=== PATIENT | female | born 1990 | race Caucasian/White ===

== ENCOUNTER → 2016-03-11 | Outpatient (REF) | payer OTHER | LOC: M LAB REF 09:57 | PROVIDERS: ATTEND Physician Assistant | DX: J02.9 Acute pharyngitis, unspecified (principal) ==

== ENCOUNTER → 2016-05-18 | Outpatient (REF) | payer OTHER | LOC: M LAB REF 14:08 | PROVIDERS: ATTEND Physician Assistant Medical | DX: R68.89 Other general symptoms and signs (principal) ==

== ENCOUNTER → 2019-02-20 | Outpatient (CLI) | payer OTHER, MEDICAID ==
[2019-02-20 18:45] LABS: HEMATOCRIT 37.7 % (36.0-47.0); HEMOGLOBIN 12.2 g/dl (12.0-15.5); MEAN CORPUSCULAR HEMOGLOBIN 31.3 pg (27.0-33.0); MEAN CORPUSCULAR HGB CONC 32.4 g/dl (32.0-36.5); MEAN CORPUSCULAR VOLUME 96.7 fl (80.0-96.0); PLATELET COUNT, AUTOMATED 193 10^3/uL (150-450); WHITE BLOOD COUNT 9.8 10^3/uL (4.0-10.0)
== END ==
LOC: M WUC 14:26
PROVIDERS: ATTEND Nurse Practitioner Women's Health
DX: Z34.82 Encounter for supervision of other normal pregnancy, second trimester (principal); Z3A.00 Weeks of gestation of pregnancy not specified

== ENCOUNTER → 2019-03-30 | Outpatient (REF) | payer OTHER, MEDICAID | LOC: M LAB REF 16:28 | PROVIDERS: ATTEND Obstetrics & Gynecology | DX: Z36.85 Encounter for antenatal screening for Streptococcus B (principal) ==

== ENCOUNTER 2019-04-20 07:59 | Outpatient (CLI) | payer OTHER, MEDICAID ==
[~2019-04-20] VITALS: Ht 157.5 cm; Wt 81.7 kg
[2019-04-20 08:18] VITALS: BP 119/67
[2019-04-20] MEDS ORDERED: PRENTAB9 PO (08:23)
[2019-04-20] MEDS ORDERED: EXCETAB33 PO (08:23)
[2019-04-20] MEDS ORDERED: FIORICET TAB PO ONE (09:00)
[2019-04-20 09:39] VITALS: BP 126/75
[2019-04-20 11:22] VITALS: BP 106/61
[2019-04-20 12:44] VITALS: BP 123/80
== END 2019-04-20 13:20 | disposition home or self-care (01) ==
LOC: M LDO 07:59
PROVIDERS: ATTEND Obstetrics & Gynecology
DX: O99.353 Diseases of the nervous system complicating pregnancy, third trimester (principal); G43.909 Migraine, unspecified, not intractable, without status migrainosus; Z3A.37 37 weeks gestation of pregnancy; Z79.82 Long term (current) use of aspirin; Z88.2 Allergy status to sulfonamides

== ENCOUNTER 2019-05-03 00:56 | Inpatient (IN) | payer OTHER, MEDICAID ==
[~2019-05-03] VITALS: Ht 157.5 cm; Wt 82.1 kg
[2019-05-03] VITALS (62 sets, daily range): BP systolic 107–162; BP diastolic 59–100
[~2019-05-03 00:56] MED LIST: EXCETAB33 PO; PRENTAB9 PO
[2019-05-03] MEDS ORDERED: PENICILLIN G POTASSIUM IV 5 MU in D5W MINI-BAG PLUS 100 ML IV ONE (02:00)
[2019-05-03 03:13] LABS: HEMOGLOBIN 13.1 g/dl (12.0-15.5); MEAN CORPUSCULAR HEMOGLOBIN 31.6 pg (27.0-33.0); MEAN CORPUSCULAR HGB CONC 34.5 g/dl (32.0-36.5); MEAN CORPUSCULAR VOLUME 91.6 fl (80.0-96.0); PLATELET COUNT, AUTOMATED 199 10^3/uL (150-450); RED BLOOD COUNT 4.15 10^6/uL (4.00-5.40); WHITE BLOOD COUNT 11.2 10^3/uL (4.0-10.0)
[2019-05-03 03:33] LABS: ALT/SGPT 20 U/L (12-78); BILIRUBIN,TOTAL 0.5 MG/DL (0.2-1.0); CREATININE FOR GFR 0.71 MG/DL (0.55-1.30); GLOMERULAR FILTRATION RATE > 60.0 (>60); LDH LACTATE DEHYDROGENASE 174 U/L (84-246); URIC ACID 4.8 MG/DL (2.6-6.0)
[2019-05-03] MEDS: PENICILLIN G POTASSIUM IV 2.5 MU in IV 1 EA IV SCH ×5 (06:23→22:41)
[2019-05-03] MEDS ORDERED: LACTATED RINGER'S 1000 ML IV STA (08:47)
[2019-05-03] MEDS ORDERED: OXYTOCIN 30 UNITS IN 0.9% NaCl 500ML IV BAG (J2590) As Ordered ONE (17:51)
[2019-05-03] MEDS ORDERED: LR 1,000 ML IV SCH (17:52)
[2019-05-03] MEDS ORDERED: OXYTOCIN DRIP 30 UNITS in IV 1 EA IV SCH ×5 (18:00→23:38)
[2019-05-03] MEDS ORDERED: FENTANYL 2MCG/ML ROPIVACAINE 0.2% IN 0.9% NACL 100ML IVBAG As Ordered ONE (19:56)
[2019-05-03] MEDS ORDERED: FENTANYL/ROPIVACAINE/NACL BAG 100 ML EPIDURAL SCH (21:00)
[2019-05-03] MEDS ORDERED: EPIDURAL/PCA KEYS XX PRN (21:00)
[2019-05-03] MEDS ORDERED: NALOXONE INJ 0.4 MG/1 ML VIAL (J2310) IV PRN (21:00)
[2019-05-03] MEDS ORDERED: ePHEDrine SULFATE 25 MG/5 ML(5MG/ML) SYRINGE IV PRN (21:00)
[2019-05-03] MEDS ORDERED: EPIDURAL COMMENT XX SCH (21:00)
[2019-05-03] MEDS ORDERED: ONDANSETRON 4MG/2ML VIAL (J2405) IV PRN (21:00)
[2019-05-03] MEDS ORDERED: LACTATED RINGER'S 1000 ML IV PRN (21:00)
[2019-05-03] MEDS ORDERED: diphenhydrAMINE INJ 50MG/ML VIAL (J1200) IV PRN (21:00)
[2019-05-03] MEDS ORDERED: REFRIGERATOR IV KEYS XX PRN (21:00)
[2019-05-03] MEDS ORDERED: METHYLERGONOVINE MALEATE 0.2 MG TAB PO PRN (23:45)
[2019-05-03] MEDS ORDERED: IBUPROFEN 600 MG TAB PO PRN (23:45)
[2019-05-03] MEDS ORDERED: DIBUCAINE 1% OINTMENT 30GM TOP PRN (23:45)
[2019-05-03] MEDS ORDERED: ACETAMINOPHEN TAB 650MG DOSE (2X325MG) PO PRN (23:45)
[2019-05-03] MEDS ORDERED: ANUSOL HC CREAM 30GM TOP PRN (23:45)
[2019-05-03] MEDS ORDERED: MEASLES,MUMPS,RUBELLA VACCINE INJ (MMR-II) (90707) SC SCH (23:45)
[2019-05-03] MEDS ORDERED: DOCUSATE SODIUM 100 MG CAP PO PRN (23:45)
[2019-05-03] MEDS ORDERED: RHOGAM 300 MCG (1500 IU) INJ (J2790) IM SCH (23:45)
[2019-05-04] VITALS (8 sets, daily range): BP systolic 128–155; BP diastolic 74–87
[2019-05-04 01:45] LABS: CORD GAS ABE A -3.4; CORD GAS O2 SAT A 34.4 %; CORD GAS PCO2 A 58.5 mmHg; CORD GAS PH A 7.249 UNITS; CORD GAS PO2 A 18.8 mmHg; CORD GAS SBC A 20.1 MEQ/L; CORD GAS TCO2 A 26.8 MEQ/L
[2019-05-04 01:46] LABS: CORD GAS ABE V -5.4; CORD GAS HCO3 V 21.1 MEQ/L; CORD GAS O2 SAT V 59.6 %; CORD GAS PCO2 V 44.7 mmHg; CORD GAS PH V 7.292 UNITS; CORD GAS PO2 V 26.8 mmHg; CORD GAS SBC V 19.2 MEQ/L; CORD GAS TCO2 V 22.5 MEQ/L
[2019-05-04] MEDS: ACETAMINOPHEN 500 MG TAB PO PRN ×2 (06:43→20:02)
--- NOTE | 2019-05-04 08:24 | HPE ---
DATE OF ADMISSION: 05/03/2019 Dung is a 29-year-old female, 1, para 0-0-0 with an EDC of 05/08/2019, EGA 39-4/7 weeks gestation who presented to labor and delivery with complaint of spontaneous rupture of membrane around 12 midnight. She is having occasional contractions. Her record reviewed which was essentially unremarkable. She initiated care in her first trimester at 7 weeks. lab blood type is O+, rubella immune, hepatitis negative, HIV negative, GC and chlamydia negative, 1-hour sugar testing was within normal limits. Her GBS is positive. PAST MEDICAL HISTORY: Denies. PAST SURGICAL HISTORY: Tonsillectomy as a child. SOCIAL HISTORY: She denies any alcohol, drug or cigarette smoking. REVIEW OF SYSTEMS: Unremarkable. MEDICATIONS: vitamin. ALLERGIES: BACTRIM. FAMILY HISTORY: Unremarkable. PHYSICAL EXAMINATION: HEENT: Grossly within normal limits. Abdomen: Soft, nontender, nondistended. Extremities: No clubbing, cyanosis or edema. Vaginal exam: Gross rupture of membrane, 2 cm dilated, 80% effaced, fetus at -2 station in vertex position. Tracing reviewed category 1 tracing. ASSESSMENT: 1. Intrauterine at 39-4/7 weeks gestation with spontaneous rupture of membrane in labor. 2. Group B streptococcus (GBS) positive. PLAN: Admit to labor and delivery. Antibiotics started for GBS prophylaxis. Pain management discussed. The patient opted for an epidural. We will continue to monitor. Anticipate delivery.
[2019-05-04] MEDS: PRENATAL VITAMINS CHEWABLE TABLET PO SCH (09:17)
--- NOTE | 2019-05-04 12:19 | DN ---
DATE: 05/03/2019 Dung is a 29-year-old female 1, para 0 who was admitted at 39-4/7 weeks gestation with spontaneous rupture of membranes. She underwent Pitocin augmentation and then progressed to fully dilated after an epidural. She then pushed and delivered a live male infant in right occiput anterior position. scores of 7 and 9. weight 7 pounds 2 ounces. Placenta delivered spontaneously intact. Three-vessel cord. Perineum, vagina and cervix inspected. First-degree midline perineal laceration noted, which was repaired using 2-0 chromic. Estimated blood loss 300 mL. Both mother and baby in stable condition.
[2019-05-04] MEDS: IBUPROFEN 800 MG TAB PO PRN ×2 (15:15)
[2019-05-05] MEDS: IBUPROFEN 800 MG TAB PO PRN (00:59)
[2019-05-05 05:55] VITALS: BP 124/76
[2019-05-05] MEDS: PRENATAL VITAMINS CHEWABLE TABLET PO SCH (09:00)
== END 2019-05-05 13:00 | disposition home or self-care (01) | DRG 560 ==
LOC: M LDO 00:56 → M LDI 02:29 → M OBS 05-04 01:29
PROVIDERS: ADMIT Obstetrics & Gynecology; ATTEND Obstetrics & Gynecology
PROC: 10E0XZZ Delivery of Products of Conception, External Approach (ICD-10-PCS; principal; 2019-05-03)
PROC: 0HQ9XZZ Repair Perineum Skin, External Approach (ICD-10-PCS; 2019-05-03)
DX: O99.824 Streptococcus B carrier state complicating childbirth (principal); Z37.0 Single live birth; Z3A.39 39 weeks gestation of pregnancy; O70.0 First degree perineal laceration during delivery

== ENCOUNTER → 2019-12-09 | Outpatient (REF) | payer OTHER, MEDICAID ==
[2019-12-09 14:31] LABS: APPEARANCE, URINE CLOUDY (CLEAR); BACTERIA, URINE AUTO 2+ (NEGATIVE); BILIRUBIN, URINE AUTO NEGATIVE (NEGATIVE); BLOOD, URINE BLOOD 3+ (NEGATIVE); COLOR, URINE YELLOW (YELLOW); GLUCOSE, URINE (UA) AUTO NEGATIVE (NEGATIVE); KETONE, URINE AUTO NEGATIVE (NEGATIVE); LEUKOCYTE ESTERASE, URINE AUTO 3+ (NEGATIVE); MUCUS, URINE SMALL (NEGATIVE); NITRITE, URINE AUTO NEGATIVE (NEGATIVE); PROTEIN, URINE AUTO 1+ mg/dL (NEGATIVE); RBC, URINE AUTO 11 /HPF (0-3); SPECIFIC GRAVITY URINE AUTO 1.004 (1.002-1.035); SQUAMOUS EPITHELIAL CELL UR AU 1 /HPF (0-6); UROBILINOGEN, URINE AUTO 0.2 mg/dL (0.0-2.0); WBC, URINE AUTO TNTC /HPF (0-3)
== END ==
LOC: M LAB REF 12:39
PROVIDERS: ATTEND Physician Assistant
DX: N39.0 Urinary tract infection, site not specified (principal)

== ENCOUNTER 2021-02-01 08:41 | Emergency (ER) | payer MEDICAID, OTHER ==
[~2021-02-01] VITALS: Ht 157.5 cm; Wt 73.6 kg
[2021-02-01] MEDS ORDERED: NAPR-849 PO (09:05)
[2021-02-01] MEDS ORDERED: KETOROLAC TROMETHAMINE 10 MG TAB PO ONE (12:00)
[2021-02-01] MEDS ORDERED: CYCLOBENZAPRINE 5MG TABLET PO ONE ×2 (12:00)
[2021-02-01] MEDS ORDERED: LIDOCAINE 5% (LIDODERM) PATCH TD ONE (12:00)
[2021-02-01] MEDS ORDERED: CYCL5TAB PO (12:44)
[2021-02-01] MEDS ORDERED: KETO10TAB PO (12:45)
[2021-02-01 12:50] VITALS: BP 120/79
[2021-02-01] MEDS ORDERED: **NOTE PATIENT COMMENT** MISC XX SCH (21:00)
== END 2021-02-01 12:56 | disposition home or self-care (01) ==
LOC: M ED 08:41
DX: M54.42 Lumbago with sciatica, left side (principal); Z87.440 Personal history of urinary (tract) infections; Z79.82 Long term (current) use of aspirin; Z88.2 Allergy status to sulfonamides

== ENCOUNTER → 2021-03-22 | Outpatient (REF) | payer OTHER ==
[~2021-03-22] MED LIST changes: +CYCL5TAB PO; +KETO10TAB PO; +NAPR-849 PO
[2021-03-22 13:43] LABS: RSV AMPLIFICATION NEGATIVE (NEGATIVE)
== END ==
LOC: M WUC 12:11
PROVIDERS: ATTEND Physician Assistant
DX: J02.9 Acute pharyngitis, unspecified (principal); R68.83 Chills (without fever)

== ENCOUNTER → 2021-12-03 | Outpatient (REF) | payer OTHER ==
[~2021-12-03] MED LIST changes: +EXCETAB32 PO; -EXCETAB33 PO
[2021-12-03 19:17] LABS: HCG, SERUM QUALITATIVE POSITIVE (NEGATIVE)
[2021-12-03 19:34] LABS: HCG, SERUM QUANTITATIVE 36 MIU/ML
== END ==
LOC: M PLALAB 17:12
PROVIDERS: ATTEND Nurse Practitioner Family
DX: N91.2 Amenorrhea, unspecified (principal)

== ENCOUNTER → 2021-12-13 | Outpatient (REF) | payer OTHER, MEDICAID ==
[2021-12-13 17:27] LABS: HEMATOCRIT 41.1 % (36.0-47.0); HEMOGLOBIN 13.7 g/dl (12.0-15.5); MEAN CORPUSCULAR HEMOGLOBIN 31.4 pg (27.0-33.0); MEAN CORPUSCULAR HGB CONC 33.3 g/dl (32.0-36.5); MEAN CORPUSCULAR VOLUME 94.3 fl (80.0-96.0); PLATELET COUNT, AUTOMATED 239 10^3/uL (150-450); RED BLOOD COUNT 4.36 10^6/uL (4.00-5.40); WHITE BLOOD COUNT 6.6 10^3/uL (4.0-10.0)
[2021-12-13 18:06] LABS: HCG, SERUM QUANTITATIVE 599 MIU/ML
[2021-12-13 18:41] LABS: HEPATITIS B SURFACE ANTIGEN NEGATIVE (NEGATIVE)
[2021-12-13 19:08] LABS: HEPATITIS C VIRUS ABY INDEX < 0.0 INDEX (<0.8); HIV 1&2 SCREEN CENTAUR NEGATIVE (NEGATIVE)
== END ==
LOC: M LAB REF 16:24
PROVIDERS: ATTEND Obstetrics & Gynecology
DX: O36.80X0 Pregnancy with inconclusive fetal viability, not applicable or unspecified (principal); Z32.01 Encounter for pregnancy test, result positive

== ENCOUNTER → 2021-12-17 | Outpatient (REF) | payer OTHER, MEDICAID | LOC: M LAB REF 16:11 | PROVIDERS: ATTEND Obstetrics & Gynecology | DX: O36.80X0 Pregnancy with inconclusive fetal viability, not applicable or unspecified (principal); Z32.01 Encounter for pregnancy test, result positive ==

== ENCOUNTER → 2021-12-19 | Outpatient (REF) | payer OTHER, MEDICAID | LOC: M LAB REF 12:04 | PROVIDERS: ATTEND Advanced Practice Midwife | DX: O36.80X0 Pregnancy with inconclusive fetal viability, not applicable or unspecified (principal); Z3A.00 Weeks of gestation of pregnancy not specified ==

== ENCOUNTER → 2021-12-21 | Outpatient (REF) | payer OTHER, MEDICAID | LOC: M LAB REF 12:19 | PROVIDERS: ATTEND Advanced Practice Midwife | DX: O02.1 Missed abortion (principal) ==

== ENCOUNTER → 2021-12-25 | Outpatient (REF) | payer OTHER, MEDICAID | LOC: M LAB REF 16:23 | PROVIDERS: ATTEND Obstetrics & Gynecology | DX: O02.1 Missed abortion (principal) ==

== ENCOUNTER → 2022-01-01 | Outpatient (REF) | payer OTHER, MEDICAID | LOC: M LAB REF 16:27 | PROVIDERS: ATTEND Obstetrics & Gynecology | DX: O03.9 Complete or unspecified spontaneous abortion without complication (principal) ==

== ENCOUNTER 2022-01-13 06:14 | Emergency (ER) | payer MEDICAID, OTHER ==
[~2022-01-13] VITALS: Ht 157.5 cm; Wt 72.7 kg
[2022-01-13 07:48] LABS: BASO % 0.4 % (0.0-1.0); EOS # 0.1 10^3/uL (0.0-0.5); EOS % 0.9 % (0.0-3.0); HEMATOCRIT 42.5 % (36.0-47.0); HEMOGLOBIN 14.6 g/dl (12.0-15.5); LYMPH # 1.2 10^3/uL (1.5-5.0); LYMPH % 15.8 % (24.0-44.0); MEAN CORPUSCULAR HEMOGLOBIN 31.8 pg (27.0-33.0); MEAN CORPUSCULAR HGB CONC 34.4 g/dl (32.0-36.5); MEAN CORPUSCULAR VOLUME 92.6 fl (80.0-96.0); MONO # 0.3 10^3/uL (0.0-0.8); MONO % 3.2 % (2.0-8.0); NEUTROPHILS # 6.2 10^3/uL (1.5-8.5); NEUTROPHILS % 79.3 % (36.0-66.0); PLATELET COUNT, AUTOMATED 211 10^3/uL (150-450); RED BLOOD COUNT 4.59 10^6/uL (4.00-5.40); WHITE BLOOD COUNT 7.8 10^3/uL (4.0-10.0)
[2022-01-13] MEDS ORDERED: methylPREDNISolone 125MG 2ML VIAL IV ONE (07:50)
[2022-01-13] MEDS ORDERED: LIDOCAINE 5% (LIDODERM) PATCH TD ONE (07:50)
[2022-01-13] MEDS ORDERED: CYCLOBENZAPRINE 10MG TABLET PO ONE (07:50)
[2022-01-13] MEDS ORDERED: ACETAMINOPHEN 500 MG TAB PO ONE (07:50)
[2022-01-13] MEDS ORDERED: KETOROLAC 30 MG/ML 1ML VIAL IV ONE (07:50)
[2022-01-13 08:20] LABS: BLOOD UREA NITROGEN 16 MG/DL (7-18); CARBON DIOXIDE LEVEL 26 MEQ/L (21-32); CHLORIDE LEVEL 108 MEQ/L (98-107); CREATININE FOR GFR 0.81 MG/DL (0.55-1.30); GLOMERULAR FILTRATION RATE > 60.0 (>60); GLUCOSE, FASTING 92 MG/DL (70-100); POTASSIUM SERUM 4.3 MEQ/L (3.5-5.1); SODIUM LEVEL 139 MEQ/L (136-145)
[2022-01-13] MEDS ORDERED: MORPHINE 4 MG/ML 1ML VIAL/SYRINGE IV ONE (10:30)
[2022-01-13] MEDS ORDERED: ONDANSETRON 4MG 2ML VIAL IV ONE (10:30)
[2022-01-13 11:27] LABS: APPEARANCE, URINE MANUAL HAZY (CLEAR); COLOR, URINE MANUAL YELLOW (YELLOW); SPECIFIC GRAVITY,URINE MANUAL 1.015 (1.002-1.035)
[2022-01-13 11:28] LABS: BILIRUBIN, URINE MANUAL NEGATIVE (NEGATIVE); BLOOD URINE MANUAL NEGATIVE (NEGATIVE); GLUCOSE, URINE (UA) MANUAL NEGATIVE (NEGATIVE); KETONE, URINE MANUAL 2+ mg/dL (NEGATIVE); LEUKOCYTE ESTERASE, URINE MAN POSITIVE (NEGATIVE); NITRITE, URINE MANUAL NEGATIVE (NEGATIVE); PROTEIN, URINE MANUAL TRACE mg/dL (NEGATIVE); UROBILINOGEN, URINE MANUAL NORMAL (NORMAL)
[2022-01-13 11:34] LABS: WBC, URINE 20-30 /hpf (0-3)
[2022-01-13 11:35] LABS: BACTERIA, URINE MOD AMOUNT; HYALINE CAST, URINE NONE SEEN /lpf (0-1); MUCUS, URINE MOD AMOUNT (NEGATIVE); SQUAMOUS EPITHELIAL CELL URINE LARGE AMOUNT /hpf (SMALL AMT)
[2022-01-13] MEDS: HYDROMORPHONE HCL 0.5 MG/ 0.5 ML SYRINGE (J1170 PER 1) IV PRN ×2 (11:40→13:42)
[2022-01-13] MEDS ORDERED: IBUP200C29 PO (12:39)
[2022-01-13] MEDS ORDERED: HOME MED LIST COMPLETE! XX SCH (12:40)
[2022-01-13 13:44] LABS: RSV AMPLIFICATION NEGATIVE (NEGATIVE)
[2022-01-13 13:46] VITALS: BP 115/68
[2022-01-13] MEDS ORDERED: LIDO5DIS41 TOP (14:20)
[2022-01-13] MEDS ORDERED: MEDR4PAK PO (14:20)
[2022-01-13] MEDS ORDERED: CYCL5TAB PO (14:20)
[2022-01-13] MEDS ORDERED: IBUP80TA PO (14:23)
== END 2022-01-13 14:36 | disposition home or self-care (01) ==
LOC: M ED 06:14
DX: S39.012A Strain of muscle, fascia and tendon of lower back, initial encounter (principal); M51.16 Intervertebral disc disorders with radiculopathy, lumbar region; M51.27 Other intervertebral disc displacement, lumbosacral region; Z88.2 Allergy status to sulfonamides; Z79.899 Other long term (current) drug therapy
CPT/HCPCS: 72148; 80048; 81000; 84702; 85025; 87631; 93041; 96374; 96375; 96376; 99284; J1170; J1885; J2270; J2405; J2930

== ENCOUNTER → 2022-01-29 | Outpatient (CLI) | payer OTHER ==
[~2022-01-29] MED LIST changes: +IBUP200C29 PO; +IBUP80TA PO; +LIDO5DIS41 TOP; +MEDR4PAK PO
[2022-01-29 14:48] LABS: ALBUMIN 4.3 G/DL (3.2-5.2); ALT/SGPT 11 U/L (7.0-40); BILIRUBIN,TOTAL 1.1 MG/DL (0.3-1.2); BLOOD UREA NITROGEN 12 MG/DL (9-23); CALCIUM LEVEL 9.4 MG/DL (8.5-10.1); CARBON DIOXIDE LEVEL 27 MMOL/L (20-31); CHLORIDE LEVEL 106 MMOL/L (98-107); CREATININE FOR GFR 0.78 MG/DL (0.55-1.30); GLOMERULAR FILTRATION RATE > 60.0 (>60); GLUCOSE, FASTING 89 MG/DL (60-100); POTASSIUM SERUM 4.6 MMOL/L (3.5-5.1); SODIUM LEVEL 140 MMOL/L (136-145); TOTAL PROTEIN 7.3 G/DL (5.7-8.2)
== END ==
LOC: M PLALAB 08:37
PROVIDERS: ATTEND Nurse Practitioner Family
DX: M54.50 Low back pain, unspecified (principal)

== ENCOUNTER → 2022-03-14 | Outpatient (CLI) | payer OTHER ==
[~2022-03-14] MED LIST changes: +ACET32TAB PO; +MULTTAB20 PO
== END ==
LOC: M RAD 07:38
PROVIDERS: ATTEND Nurse Practitioner Family
DX: R16.0 Hepatomegaly, not elsewhere classified (principal)

== ENCOUNTER → 2022-06-20 | Outpatient (REF) | payer OTHER | LOC: M LAB REF 17:34 | PROVIDERS: ATTEND Nurse Practitioner Family | DX: Z12.4 Encounter for screening for malignant neoplasm of cervix (principal) ==

== ENCOUNTER → 2022-06-27 | Outpatient (REF) | payer OTHER, MEDICAID ==
[2022-06-27 17:20] LABS: HEMATOCRIT 39.7 % (36.0-47.0); HEMOGLOBIN 13.5 g/dl (12.0-15.5); MEAN CORPUSCULAR HEMOGLOBIN 31.8 pg (27.0-33.0); MEAN CORPUSCULAR VOLUME 93.6 fl (80.0-96.0); PLATELET COUNT, AUTOMATED 259 10^3/uL (150-450); RED BLOOD COUNT 4.24 10^6/uL (4.00-5.40); WHITE BLOOD COUNT 7.1 10^3/uL (4.0-10.0)
[2022-06-27 17:52] LABS: HEPATITIS B SURFACE ANTIGEN NEGATIVE (NEGATIVE)
[2022-06-27 18:05] LABS: HIV 1&2 SCREEN CENTAUR NEGATIVE (NEGATIVE)
[2022-06-27 18:13] LABS: HEPATITIS C VIRUS ABY INDEX < 0.0 INDEX (<0.8)
[2022-06-27 18:20] LABS: HCG, SERUM QUANTITATIVE 4485.1 MIU/ML (<4.2)
== END ==
LOC: M LAB REF 16:32
PROVIDERS: ATTEND Obstetrics & Gynecology
DX: Z32.01 Encounter for pregnancy test, result positive (principal); O36.80X0 Pregnancy with inconclusive fetal viability, not applicable or unspecified; Z3A.00 Weeks of gestation of pregnancy not specified

== ENCOUNTER → 2022-07-09 | Outpatient (CLI) | payer OTHER ==
[2022-07-09 12:00] LABS: HCG, SERUM QUALITATIVE POSITIVE (NEGATIVE)
[2022-07-09 12:29] LABS: HCG, SERUM QUANTITATIVE 58611.6 MIU/ML (<4.2)
== END ==
LOC: M PLALAB 08:10
PROVIDERS: ATTEND Nurse Practitioner Family
DX: N91.2 Amenorrhea, unspecified (principal)

== ENCOUNTER → 2022-07-24 | Outpatient (CLI) | payer OTHER | LOC: M RAD 15:51 | PROVIDERS: ATTEND Obstetrics & Gynecology | DX: Z32.01 Encounter for pregnancy test, result positive (principal) ==

== ENCOUNTER → 2022-07-26 | Outpatient (REF) | payer OTHER, MEDICAID | LOC: M LAB REF 12:02 | PROVIDERS: ATTEND Obstetrics & Gynecology | DX: O20.9 Hemorrhage in early pregnancy, unspecified (principal); Z3A.00 Weeks of gestation of pregnancy not specified ==

== ENCOUNTER → 2022-10-09 | Outpatient (CLI) | payer OTHER | LOC: M WHC 12:02 | PROVIDERS: ATTEND Obstetrics & Gynecology | DX: Z34.82 Encounter for supervision of other normal pregnancy, second trimester (principal) ==

== ENCOUNTER → 2022-11-14 | Outpatient (CLI) | payer OTHER | LOC: M WHC 09:33 | PROVIDERS: ATTEND Obstetrics & Gynecology | DX: Z34.82 Encounter for supervision of other normal pregnancy, second trimester (principal) ==

== ENCOUNTER → 2022-11-27 | Outpatient (CLI) | payer OTHER ==
[2022-11-27 12:03] LABS: HEMATOCRIT 37.3 % (36.0-47.0); HEMOGLOBIN 12.6 g/dl (12.0-15.5); MEAN CORPUSCULAR HEMOGLOBIN 31.3 pg (27.0-33.0); MEAN CORPUSCULAR HGB CONC 33.8 g/dl (32.0-36.5); MEAN CORPUSCULAR VOLUME 92.6 fl (80.0-96.0); PLATELET COUNT, AUTOMATED 222 10^3/uL (150-450); RED BLOOD COUNT 4.03 10^6/uL (4.00-5.40); WHITE BLOOD COUNT 10.4 10^3/uL (4.0-10.0)
== END ==
LOC: M WUC 09:09
PROVIDERS: ATTEND Obstetrics & Gynecology
DX: Z36.9 Encounter for antenatal screening, unspecified (principal)

== ENCOUNTER → 2022-12-12 | Outpatient (CLI) | payer OTHER | LOC: M LAB 07:09 | PROVIDERS: ATTEND Obstetrics & Gynecology | DX: O99.810 Abnormal glucose complicating pregnancy (principal); Z3A.00 Weeks of gestation of pregnancy not specified ==

== ENCOUNTER → 2023-01-03 | Outpatient (CLI) | payer OTHER | LOC: M RAD 08:56 | PROVIDERS: ATTEND Obstetrics & Gynecology | DX: O14.93 Unspecified pre-eclampsia, third trimester (principal) ==

== ENCOUNTER → 2023-01-03 | Outpatient (CLI) | payer OTHER ==
[2023-01-03 16:35] LABS: URINE TOTAL PROTEIN 15.5 MG/DL (0-14)
[2023-01-03 17:07] LABS: URIC ACID 4.5 MG/DL (3.1-7.8)
[2023-01-03 17:09] LABS: LDH LACTATE DEHYDROGENASE 124 U/L (120-246)
[2023-01-03 17:10] LABS: ALT/SGPT 14 U/L (7.0-40); AST/SGOT 10 U/L (<34); BASO % 0.3 % (0.0-1.0); BILIRUBIN,TOTAL 0.5 MG/DL (0.3-1.2); CREATININE FOR GFR 0.55 MG/DL (0.55-1.30); EOS % 0.4 % (0.0-3.0); GLOMERULAR FILTRATION RATE > 60.0 (>60); HEMATOCRIT 36.2 % (36.0-47.0); HEMOGLOBIN 12.3 g/dl (12.0-15.5); LYMPH # 2.2 10^3/uL (1.5-5.0); LYMPH % 22.9 % (24.0-44.0); MEAN CORPUSCULAR HEMOGLOBIN 31.3 pg (27.0-33.0); MEAN CORPUSCULAR VOLUME 92.1 fl (80.0-96.0); MONO # 0.6 10^3/uL (0.0-0.8); MONO % 6.4 % (2.0-8.0); NEUTROPHILS # 6.5 10^3/uL (1.5-8.5); NEUTROPHILS % 68.5 % (36.0-66.0); PLATELET COUNT, AUTOMATED 202 10^3/uL (150-450); RED BLOOD COUNT 3.93 10^6/uL (4.00-5.40); WHITE BLOOD COUNT 9.5 10^3/uL (4.0-10.0)
[2023-01-03 18:30] LABS: TOTAL PROTEIN 24 HOUR URINE 317.7 MG/24HR (50-80)
== END ==
LOC: M LAB 15:38
PROVIDERS: ATTEND Obstetrics & Gynecology
DX: O14.93 Unspecified pre-eclampsia, third trimester (principal)

== ENCOUNTER → 2023-01-14 | Outpatient (REF) | payer OTHER, MEDICAID ==
[~2023-01-14] MED LIST changes: +ACET-897 PO
[2023-01-14 17:37] LABS: CREATININE,RANDOM URINE 29.8 MG/DL
[2023-01-14 17:41] LABS: TOTAL PROTEIN,RANDOM URINE < 6.0 MG/DL (0.0-14.0)
== END ==
LOC: M LAB REF 16:16
PROVIDERS: ATTEND Advanced Practice Midwife
DX: O14.93 Unspecified pre-eclampsia, third trimester (principal)

== ENCOUNTER 2023-01-15 15:28 | Inpatient (IN) | payer OTHER, MEDICAID ==
[2023-01-15] VITALS (13 sets, daily range): BP systolic 134–195; BP diastolic 91–125
[~2023-01-15] VITALS: Ht 157.5 cm; Wt 87.3 kg
[~2023-01-15 15:28] MED LIST changes: -ACET-897 PO
[2023-01-15 16:33] LABS: HEMATOCRIT 37.5 % (36.0-47.0); HEMOGLOBIN 13.1 g/dl (12.0-15.5); MEAN CORPUSCULAR HEMOGLOBIN 32.1 pg (27.0-33.0); MEAN CORPUSCULAR HGB CONC 34.9 g/dl (32.0-36.5); MEAN CORPUSCULAR VOLUME 91.9 fl (80.0-96.0); PLATELET COUNT, AUTOMATED 203 10^3/uL (150-450); RED BLOOD COUNT 4.08 10^6/uL (4.00-5.40); WHITE BLOOD COUNT 10.2 10^3/uL (4.0-10.0)
[2023-01-15] MEDS ORDERED: ACET-897 PO (16:36)
[2023-01-15] MEDS ORDERED: HOME MED LIST COMPLETE! XX SCH (16:40)
[2023-01-15 16:52] LABS: CREATININE,RANDOM URINE 62.3 MG/DL
[2023-01-15 17:01] LABS: URIC ACID 4.2 MG/DL (3.1-7.8)
[2023-01-15 17:03] LABS: LDH LACTATE DEHYDROGENASE 131 U/L (120-246)
[2023-01-15 17:04] LABS: ALT/SGPT 9 U/L (7.0-40); AST/SGOT 9 U/L (<34); BILIRUBIN,TOTAL 0.5 MG/DL (0.3-1.2); CREATININE FOR GFR 0.52 MG/DL (0.55-1.30); GLOMERULAR FILTRATION RATE > 60.0 (>60)
[2023-01-15] MEDS ORDERED: LACTATED RINGER'S 1000 ML IV STA (17:39)
[2023-01-15] MEDS ORDERED: TRANEXAMIC ACID INJection 1,000 MG in NS 100 ML IV PRN (17:40)
[2023-01-15] MEDS ORDERED: CARBOPROST TROMETHAMINE 250 MCG/ML AMP IM PRN (17:40)
[2023-01-15] MEDS ORDERED: OXYTOCIN DRIP 30 UNITS in IV 1 EA IV PRN (17:40)
[2023-01-15] MEDS ORDERED: LIDOCAINE 1% MDV 20ML VIAL INFIL PRN (17:40)
[2023-01-15] MEDS ORDERED: OXYTOCIN INJ 10UNITS/ML 1ML VIAL IM PRN (17:40)
[2023-01-15] MEDS ORDERED: PENICILLIN G POTASSIUM 5 MU IV 5 MU in D5W MINI-BAG PLUS 100 ML IV STA (18:01)
[2023-01-15] MEDS: miSOPROStol 50MCG 1/2 TABLET PO SCH (18:45)
[2023-01-15] MEDS ORDERED: PEN G POT 3,000,000 UNIT/50 ML 3,000,000 UNIT in IV 1 EA IV SCH (22:05)
[2023-01-16] VITALS (27 sets, daily range): BP systolic 127–185; BP diastolic 69–102; O2SAT 96–98
[2023-01-16] MEDS: miSOPROStol 50MCG 1/2 TABLET PO SCH (00:37)
[2023-01-16] MEDS ORDERED: FENTANYL 2MCG/ML ROPIVACAINE 0.2% IN 0.9% NACL 100ML IVBAG As Ordered ONE (07:43)
[2023-01-16] MEDS ORDERED: ONDANSETRON 4MG 2ML VIAL IV PRN (07:45)
[2023-01-16] MEDS ORDERED: LR 500 ML IV PRN (07:45)
[2023-01-16] MEDS ORDERED: FENTANYL/ROPIVACAINE/NACL BAG 100 ML EPIDURAL SCH (07:45)
[2023-01-16] MEDS ORDERED: EPIDURAL/PCA KEYS XX PRN (07:45)
[2023-01-16] MEDS ORDERED: diphenhydrAMINE 50MG/ML VIAL IV PRN (07:45)
[2023-01-16] MEDS ORDERED: NALOXONE INJ 0.4MG/1ML VIAL IV PRN (07:45)
[2023-01-16] MEDS ORDERED: ePHEDrine SULFATE 25 MG/5 ML(5MG/ML) SYRINGE IVP PRN (07:45)
[2023-01-16] MEDS ORDERED: PENICILLIN G POTASSIUM 5 MU IV 5 MU in D5W MINI-BAG PLUS 100 ML IV STA (07:49)
[2023-01-16] MEDS: AMPICILLIN SOD/SULBACTAM SOD 3 GM in D5W MINI-BAG PLUS 100 ML IV SCH ×2 (10:24→18:33)
[2023-01-16] MEDS ORDERED: ANUSOL HC CREAM 30GM TOP PRN (10:50)
[2023-01-16] MEDS ORDERED: METHYLERGONOVINE MALEATE 0.2 MG TAB PO PRN (10:50)
[2023-01-16] MEDS ORDERED: DIBUCAINE 1% OINTMENT 30GM TOP PRN (10:50)
[2023-01-16] MEDS ORDERED: OXYTOCIN DRIP 30 UNITS in IV 1 EA IV SCH (10:50)
[2023-01-16] MEDS ORDERED: ACETAMINOPHEN TAB 650MG DOSE (2X325MG) PO PRN (10:50)
[2023-01-16] MEDS ORDERED: IBUPROFEN 600MG TAB PO PRN (10:50)
[2023-01-16] MEDS ORDERED: RHOGAM 300MCG (1500IU) INJ IM SCH (10:50)
[2023-01-16] MEDS ORDERED: MOM 30ML SUSPENSION UDC PO PRN (10:50)
[2023-01-16] MEDS ORDERED: DOCUSATE SODIUM 100MG CAPSULE PO PRN (10:50)
[2023-01-16] MEDS: ACETAMINOPHEN 500 MG TAB PO PRN (11:32)
[2023-01-16] MEDS ORDERED: PEN G POT 3,000,000 UNIT/50 ML 3,000,000 UNIT in IV 1 EA IV SCH (12:00)
[2023-01-16] MEDS: IBUPROFEN 800 MG TAB PO PRN (18:03)
[2023-01-17] MEDS: ACETAMINOPHEN 500 MG TAB PO PRN (01:01)
[2023-01-17] MEDS: AMPICILLIN SOD/SULBACTAM SOD 3 GM in D5W MINI-BAG PLUS 100 ML IV SCH ×3 (05:53)
[2023-01-17 06:00] VITALS: BP 132/88; O2SAT 98
[2023-01-17] MEDS: IBUPROFEN 800 MG TAB PO PRN (08:31)
[2023-01-17] MEDS ORDERED: PRENATAL VITAMINS CHEWABLE TABLET PO SCH (09:00)
[2023-01-17 18:00] VITALS: BP 141/100; O2SAT 99
[2023-01-18] MEDS ORDERED: MEASLES,MUMPS,RUBELLA VACCINE INJ (MMR-II) SC.IMMUN ONE (09:00)
== END 2023-01-17 18:00 | disposition home or self-care (01) | DRG 541 ==
LOC: M LDO 15:28 → M LDI 17:28 → M OBS 01-16 12:09
PROVIDERS: ADMIT Advanced Practice Midwife; ATTEND Obstetrics & Gynecology
PROC: 3E0P7GC Introduction of Other Therapeutic Substance into Female Reproductive, Via Natural or Artificial Opening (ICD-10-PCS; 2023-01-15)
PROC: 10E0XZZ Delivery of Products of Conception, External Approach (ICD-10-PCS; principal; 2023-01-16)
PROC: 10D17Z9 Manual Extraction of Products of Conception, Retained, Via Natural or Artificial Opening (ICD-10-PCS; 2023-01-16)
DX: O14.14 Severe pre-eclampsia complicating childbirth (principal); O36.5933 Maternal care for other known or suspected poor fetal growth, third trimester, fetus 3; Z3A.34 34 weeks gestation of pregnancy; Z88.2 Allergy status to sulfonamides; Z88.8 Allergy status to other drugs, medicaments and biological substances; O73.0 Retained placenta without hemorrhage; Z37.0 Single live birth

== ENCOUNTER 2023-01-22 10:30 | Emergency (ER) | payer MEDICAID, OTHER ==
[~2023-01-22] VITALS: Ht 157.5 cm; Wt 81.1 kg
[~2023-01-22 10:30] MED LIST changes: +ACET-897 PO
[2023-01-22 11:26] LABS: BASO % 0.4 % (0.0-1.0); EOS # 0.2 10^3/uL (0.0-0.5); EOS % 2.2 % (0.0-3.0); HEMATOCRIT 44.7 % (36.0-47.0); HEMOGLOBIN 14.9 g/dl (12.0-15.5); LYMPH # 1.8 10^3/uL (1.5-5.0); LYMPH % 26.9 % (24.0-44.0); MEAN CORPUSCULAR HEMOGLOBIN 31.4 pg (27.0-33.0); MEAN CORPUSCULAR HGB CONC 33.3 g/dl (32.0-36.5); MEAN CORPUSCULAR VOLUME 94.3 fl (80.0-96.0); MONO # 0.3 10^3/uL (0.0-0.8); MONO % 4.9 % (2.0-8.0); NEUTROPHILS # 4.4 10^3/uL (1.5-8.5); NEUTROPHILS % 65.2 % (36.0-66.0); PLATELET COUNT, AUTOMATED 268 10^3/uL (150-450); RED BLOOD COUNT 4.74 10^6/uL (4.00-5.40); WHITE BLOOD COUNT 6.8 10^3/uL (4.0-10.0)
[2023-01-22 11:32] LABS: ALBUMIN 3.2 G/DL (3.2-5.2); ALKALINE PHOSPHATASE 90 U/L (46-116); ALT/SGPT 40 U/L (7.0-40); AST/SGOT 28 U/L (<34); BILIRUBIN,DIRECT 0.2 MG/DL (<0.4); BLOOD UREA NITROGEN 15 MG/DL (9-23); CALCIUM LEVEL 8.9 MG/DL (8.5-10.1); CARBON DIOXIDE LEVEL 26 MMOL/L (20-31); CHLORIDE LEVEL 104 MMOL/L (98-107); CREATININE FOR GFR 0.68 MG/DL (0.55-1.30); GLOMERULAR FILTRATION RATE > 60.0 (>60); GLUCOSE, FASTING 80 MG/DL (60-100); MAGNESIUM LEVEL 1.9 MG/DL (1.8-2.4); POTASSIUM SERUM 4.1 MMOL/L (3.5-5.1); SODIUM LEVEL 138 MMOL/L (136-145); TOTAL PROTEIN 6.9 G/DL (5.7-8.2)
[2023-01-22 11:33] LABS: URIC ACID 6.3 MG/DL (3.1-7.8)
[2023-01-22 11:39] LABS: APPEARANCE, URINE CLEAR (CLEAR); BACTERIA, URINE AUTO NEGATIVE (NEGATIVE); BILIRUBIN, URINE AUTO NEGATIVE (NEGATIVE); BLOOD, URINE BLOOD 3+ (NEGATIVE); COLOR, URINE YELLOW (YELLOW); GLUCOSE, URINE (UA) AUTO NEGATIVE (NEGATIVE); KETONE, URINE AUTO NEGATIVE (NEGATIVE); LEUKOCYTE ESTERASE, URINE AUTO 1+ (NEGATIVE); NITRITE, URINE AUTO NEGATIVE (NEGATIVE); PROTEIN, URINE AUTO 1+ mg/dL (NEGATIVE); RBC, URINE AUTO 107 /HPF (0-3); SPECIFIC GRAVITY URINE AUTO 1.012 (1.002-1.035); SQUAMOUS EPITHELIAL CELL UR AU 1 /HPF (0-6); UROBILINOGEN, URINE AUTO 0.2 mg/dL (0.0-2.0); WBC, URINE AUTO 14 /HPF (0-3)
[2023-01-22 11:39] LABS: INR 0.94; PROTHROMBIN TIME 12.3 SECONDS (12.5-14.5)
[2023-01-22 11:40] LABS: PARTIAL THROMBOPLASTIN TIME 26.5 SECONDS (24.8-34.2)
[2023-01-22 12:08] LABS: TOTAL PROTEIN,RANDOM URINE 18.2 MG/DL (0.0-14.0)
[2023-01-22 12:13] LABS: CREATININE,RANDOM URINE 64.5 MG/DL
[2023-01-22] MEDS ORDERED: LABETALOL 100MG TAB PO ONE (12:55)
[2023-01-22] MEDS ORDERED: LABE100T71 PO (12:57)
[2023-01-22 13:06] VITALS: BP 139/97
[2023-01-22 13:10] VITALS: BP 139/97; TEMP 98.5; O2SAT 96
== END 2023-01-22 13:12 | disposition home or self-care (01) ==
LOC: M ED 10:30
DX: O16.5 Unspecified maternal hypertension, complicating the puerperium (principal); R10.30 Lower abdominal pain, unspecified; Z88.2 Allergy status to sulfonamides

== ENCOUNTER → 2023-03-29 | Outpatient (REF) | payer OTHER ==
[~2023-03-29] MED LIST changes: +LABE100T71 PO
== END ==
LOC: M LAB REF 17:37
PROVIDERS: ATTEND Physician Assistant
DX: J06.9 Acute upper respiratory infection, unspecified (principal)

== ENCOUNTER → 2023-08-20 | Outpatient (CLI) | payer OTHER ==
[~2023-08-20] MED LIST changes: +LABE100T40 PO; -LABE100T71 PO
[2023-08-20 18:37] LABS: BASO % 0.6 % (0.0-1.0); EOS # 0.1 10^3/uL (0.0-0.5); EOS % 1.4 % (0.0-3.0); HEMATOCRIT 40.6 % (36.0-47.0); HEMOGLOBIN 13.7 g/dl (12.0-15.5); LYMPH # 2.6 10^3/uL (1.5-5.0); LYMPH % 38.7 % (24.0-44.0); MEAN CORPUSCULAR HEMOGLOBIN 30.8 pg (27.0-33.0); MEAN CORPUSCULAR HGB CONC 33.7 g/dl (32.0-36.5); MEAN CORPUSCULAR VOLUME 91.2 fl (80.0-96.0); MONO # 0.4 10^3/uL (0.0-0.8); MONO % 6.4 % (2.0-8.0); NEUTROPHILS # 3.5 10^3/uL (1.5-8.5); NEUTROPHILS % 52.6 % (36.0-66.0); PLATELET COUNT, AUTOMATED 271 10^3/uL (150-450); RED BLOOD COUNT 4.45 10^6/uL (4.00-5.40); WHITE BLOOD COUNT 6.6 10^3/uL (4.0-10.0)
[2023-08-20 19:40] LABS: HEMOGLOBIN A1c 4.8 % (4.0-6.0)
[2023-08-20 19:51] LABS: ALKALINE PHOSPHATASE 62 U/L (46-116); ALT/SGPT 17 U/L (7.0-40); AST/SGOT < 8 U/L (<34); BILIRUBIN,TOTAL 1.2 MG/DL (0.3-1.2); BLOOD UREA NITROGEN 14 MG/DL (9-23); CALCIUM LEVEL 8.8 MG/DL (8.5-10.1); CARBON DIOXIDE LEVEL 26 MMOL/L (20-31); CHLORIDE LEVEL 105 MMOL/L (98-107); CHOLESTEROL LEVEL 174 MG/DL (<200); CHOLESTEROL RISK RATIO 3.52 (<5); GLOMERULAR FILTRATION RATE > 60.0 (>60); GLUCOSE, FASTING 93 MG/DL (60-100); HDL CHOLESTEROL 49.4 MG/DL (>40); LDL CHOLESTEROL 84.2 MG/DL (<100); MAGNESIUM LEVEL 1.9 MG/DL (1.8-2.4); NON-HDL-C 124.6 MG/DL; POTASSIUM SERUM 3.7 MMOL/L (3.5-5.1); SODIUM LEVEL 139 MMOL/L (136-145); TOTAL 25(OH) VITAMIN D 36.6 NG/ML (20.0-100.0); TOTAL PROTEIN 6.7 G/DL (5.7-8.2); TRIGLYCERIDES LEVEL 202 MG/DL (<150)
[2023-08-20 19:52] LABS: THYROID STIMULATING HORMONE 1.001 uIU/ML (0.55-4.78)
[2023-08-20 19:53] LABS: FREE T4 1.41 NG/DL (0.89-1.76)
== END ==
LOC: M PLALAB 15:07
PROVIDERS: ATTEND Nurse Practitioner Family
DX: R03.0 Elevated blood-pressure reading, without diagnosis of hypertension (principal)

== ENCOUNTER → 2024-03-18 | Outpatient (CLI) | payer BC ==
[~2024-03-18] MED LIST changes: -CYCL5TAB PO; +CYCL5TAB4 PO
[2024-03-18 18:23] LABS: ALBUMIN 3.9 G/DL (3.2-5.2); ALKALINE PHOSPHATASE 74 U/L (35-104); ALT/SGPT 17 U/L (7.0-40); AST/SGOT 12 U/L (<34); BILIRUBIN,TOTAL 0.9 MG/DL (0.3-1.2); BLOOD UREA NITROGEN 14 MG/DL (9-23); CALCIUM LEVEL 9.3 MG/DL (8.5-10.1); CARBON DIOXIDE LEVEL 28 MMOL/L (20-31); CHLORIDE LEVEL 101 MMOL/L (98-107); CREATININE FOR GFR 0.83 MG/DL (0.55-1.30); GLOMERULAR FILTRATION RATE > 60.0 (>60); GLUCOSE, FASTING 111 MG/DL (60-100); IRON (FE) 86 UG/DL (50-170); PERCENT SATURATION 25.7 % (13.2-45.0); SODIUM LEVEL 136 MMOL/L (136-145); TOTAL IRON BINDING CAPACITY 335 UG/DL (250-425); TOTAL PROTEIN 7.4 G/DL (5.7-8.2)
[2024-03-18 18:24] LABS: FREE T4 1.28 NG/DL (0.89-1.76)
[2024-03-18 18:25] LABS: FERRITIN 16.5 NG/ML (7.3-270.7); THYROID STIMULATING HORMONE 1.986 uIU/ML (0.55-4.78)
[2024-03-18 18:26] LABS: TOTAL 25(OH) VITAMIN D 24.1 NG/ML (20.0-100.0)
[2024-03-18 19:18] LABS: VITAMIN B12 LEVEL 686 PG/ML (211-911)
== END ==
LOC: M LAB 17:14
PROVIDERS: ATTEND Registered Nurse
DX: R42 Dizziness and giddiness (principal)

== ENCOUNTER → 2024-03-19 | Outpatient (REF) | payer BC ==
[2024-03-19 18:13] LABS: BASO % 0.5 % (0.0-1.0); EOS # 0.1 10^3/uL (0.0-0.5); EOS % 0.9 % (0.0-3.0); HEMATOCRIT 39.7 % (36.0-47.0); HEMOGLOBIN 13.6 g/dl (12.0-15.5); LYMPH # 1.5 10^3/uL (1.5-5.0); LYMPH % 26.2 % (24.0-44.0); MEAN CORPUSCULAR HEMOGLOBIN 30.6 pg (27.0-33.0); MEAN CORPUSCULAR HGB CONC 34.3 g/dl (32.0-36.5); MEAN CORPUSCULAR VOLUME 89.4 fl (80.0-96.0); MONO # 0.4 10^3/uL (0.0-0.8); MONO % 6.3 % (2.0-8.0); NEUTROPHILS # 3.9 10^3/uL (1.5-8.5); NEUTROPHILS % 65.9 % (36.0-66.0); PLATELET COUNT, AUTOMATED 206 10^3/uL (150-450); RED BLOOD COUNT 4.44 10^6/uL (4.00-5.40); WHITE BLOOD COUNT 5.9 10^3/uL (4.0-10.0)
== END ==
LOC: M LAB REF 16:01
PROVIDERS: ATTEND Registered Nurse
DX: R42 Dizziness and giddiness (principal)

== ENCOUNTER → 2024-10-21 | Outpatient (CLI) | payer BC ==
[~2024-10-21] MED LIST changes: +LIDO1ADH93 TOP; -LIDO5DIS41 TOP
[2024-10-21 14:13] LABS: BASO # 0.0 10^3/uL (0.0-0.2); BASO % 0.8 % (0.0-1.0); EOS # 0.1 10^3/uL (0.0-0.5); EOS % 1.5 % (0.0-3.0); LYMPH # 1.4 10^3/uL (1.5-5.0); LYMPH % 36.3 % (24.0-44.0); MONO # 0.4 10^3/uL (0.0-0.8); MONO % 10.1 % (2.0-8.0); NEUTROPHILS # 2.0 10^3/uL (1.5-8.5); NEUTROPHILS % 51.3 % (36.0-66.0); PLATELET COUNT, AUTOMATED 232 10^3/uL (150-450)
[2024-10-21 14:16] LABS: ALT/SGPT 14 U/L (7.0-40); AST/SGOT 15 U/L (<34); CALCIUM LEVEL 9.2 MG/DL (8.5-10.1); CARBON DIOXIDE LEVEL 28 MMOL/L (20-31); CHLORIDE LEVEL 105 MMOL/L (98-107); CREATININE FOR GFR 0.83 MG/DL (0.55-1.30); GLOMERULAR FILTRATION RATE > 90.0 (>60); POTASSIUM SERUM 4.8 MMOL/L (3.5-5.1); SODIUM LEVEL 142 MMOL/L (136-145)
[2024-10-21 14:19] LABS: FREE T4 1.36 NG/DL (0.89-1.76)
[2024-10-21 14:24] LABS: THYROID PEROXIDASE ANTIBODY < 28.0 U/ML (<60.0)
== END ==
LOC: M PLALAB 10:13
PROVIDERS: ATTEND Registered Nurse
DX: R59.0 Localized enlarged lymph nodes (principal)